=== PATIENT | male | born 1965 | race African-American/Black ===

== ENCOUNTER 2020-12-25 12:59 | Inpatient (IN) | payer BC, OTHER ==
[2020-12-25 14:30] LABS: BASO % 0.2 % (0-2.0); EOS % 0.2 % (0-4.5); HEMATOCRIT 35.5 % (35.4-49); HEMOGLOBIN 12.1 GM/dL (11.7-16.9); LYMPH % 22.2 % (8-40); MCH 31.9 pg (25.7-33.7); MCHC 34.1 g/dl (32.0-35.9); MEAN CELL VOLUME 93.4 fl (80-96); MONO % 5.2 % (3.8-10.2); NEUT % 72.2 % (42.8-82.8); PLATELET COUNT 317 K/MM3 (134-434); RDW 13.9 % (11.9-15.9); WHITE BLOOD COUNT 9.4 K/mm3 (4.0-10.0)
[2020-12-25 14:39] LABS: INR 1.02 (0.83-1.09); PROTHROMBIN TIME (PATIENT) 12.3 SEC (9.7-13.0)
[2020-12-25 15:08] LABS: POTASSIUM 5.1 mmol/L (3.5-5.1)
[2020-12-25 15:10] LABS: CALCIUM 8.9 mg/dL (8.5-10.1)
[2020-12-25 15:11] LABS: ALBUMIN 3.5 g/dl (3.4-5.0); BLOOD UREA NITROGEN 23.6 mg/dL (7-18)
[2020-12-25 15:14] LABS: CREATININE 1.5 mg/dL (0.55-1.3)
[2020-12-25 15:16] LABS: BILIRUBIN,TOTAL 0.3 mg/dL (0.2-1); TOT PROT 6.4 g/dl (6.4-8.2)
[2020-12-25 15:24] LABS: URINE APPEARANCE CLEAR; URINE BILIRUBIN NEGATIVE (NEGATIVE); URINE COLOR YELLOW; URINE GLUCOSE (UA) NEGATIVE (NEGATIVE); URINE KETONE TRACE (NEGATIVE); URINE LEUK ESTERASE NEGATIVE (NEGATIVE); URINE NITRITE NEGATIVE (NEGATIVE); URINE PROTEIN NEGATIVE (NEGATIVE); URINE UROBILINOGEN 0.2 mg/dL (0.2-1.0)
[2020-12-25] MEDS ORDERED: SODIUM CHLORIDE 1,000 ML IV STA ×2 (15:31→18:44)
[2020-12-25] MEDS ORDERED: PANTOPRAZOLE SODIUM 40 MG VIAL IVPB ONE (18:45)
[2020-12-25] MEDS ORDERED: PANTOPRAZOLE SODIUM 40 MG/100 ML BAG IVPB ONE (18:54)
[2020-12-25 19:04] LABS: BASO % 0.3 % (0-2.0); HEMATOCRIT 33.7 % (35.4-49); HEMOGLOBIN 11.2 GM/dL (11.7-16.9); LYMPH % 21.7 % (8-40); MCH 31.5 pg (25.7-33.7); MCHC 33.3 g/dl (32.0-35.9); MEAN CELL VOLUME 94.6 fl (80-96); MEAN PLT VOLUME 8.8 fl (7.5-11.1); MONO % 4.6 % (3.8-10.2); NEUT % 73.4 % (42.8-82.8); PLATELET COUNT 272 K/MM3 (134-434); RBC 3.57 M/mm3 (4.00-5.60); WHITE BLOOD COUNT 9.7 K/mm3 (4.0-10.0)
[2020-12-25] MEDS ORDERED: ACETAMINOPHEN 325 MG TABLET (FP) PO PRN (21:40)
[2020-12-25] MEDS ORDERED: PIPERACILLIN/TAZOB 3.375 GM 3.375 GM in DEXTROSE 5%-WATER - 50 ML IVPB SCH (22:00)
[2020-12-25] MEDS ORDERED: PIPERACILLIN/TAZOB 3.375 GM 3.375 GM/50 ML BAG IVPB ONE (22:13)
[2020-12-26] MEDS: SODIUM CHLORIDE 1,000 ML IV SCH (01:51)
[2020-12-26 02:01] LABS: BASO % 0.6 % (0-2.0); EOS % 0.3 % (0-4.5); HEMATOCRIT 28.3 % (35.4-49); HEMOGLOBIN 9.7 GM/dL (11.7-16.9); LYMPH % 33.7 % (8-40); MCHC 34.1 g/dl (32.0-35.9); MEAN CELL VOLUME 93.8 fl (80-96); MEAN PLT VOLUME 8.1 fl (7.5-11.1); MONO % 7.3 % (3.8-10.2); NEUT % 58.1 % (42.8-82.8); PLATELET COUNT 248 K/MM3 (134-434); RBC 3.02 M/mm3 (4.00-5.60); RDW 14.1 % (11.9-15.9); WHITE BLOOD COUNT 10.3 K/mm3 (4.0-10.0)
[2020-12-26 06:47] VITALS: BMI 36.9
[2020-12-26 06:57] LABS: POTASSIUM 4.3 mmol/L (3.5-5.1)
[2020-12-26 06:59] LABS: ALBUMIN 2.8 g/dl (3.4-5.0); BLOOD UREA NITROGEN 25.2 mg/dL (7-18); CALCIUM 8.1 mg/dL (8.5-10.1); MAGNESIUM 1.4 mg/dL (1.8-2.4)
[2020-12-26 07:02] LABS: CREATININE 1.4 mg/dL (0.55-1.3)
[2020-12-26 07:04] LABS: BILIRUBIN,TOTAL 0.3 mg/dL (0.2-1); TOT PROT 5.2 g/dl (6.4-8.2)
[2020-12-26] MEDS ORDERED: MAGNESIUM SULF 50% (8.12 MEQ/2 ML-1 GM VIAL) IVPB ONE (08:42)
[2020-12-26] MEDS ORDERED: ZINC SULFATE 220 MG CAPSULE (FP) PO SCH (10:00)
[2020-12-26] MEDS ORDERED: CHOLECALCIFEROL (VIT D3) 1,000 UNIT (25 MCG) TABLET PO SCH (10:00)
[2020-12-26] MEDS ORDERED: ENOXAPARIN NA (PORCINE) 40 MG/0.4 ML DISP.SYRIN SQ SCH (10:00)
[2020-12-26] MEDS ORDERED: PIPERACILLIN/TAZOB 3.375 GM 3.375 GM in DEXTROSE 5%-WATER - 50 ML IVPB SCH (10:00)
[2020-12-26] MEDS ORDERED: VANCOMYCIN 1 GM in D5W (PRE-DOCKED) 1,000 MG/250 ML IVPB SCH (10:00)
[2020-12-26] MEDS ORDERED: PANTOPRAZOLE SODIUM 40 MG VIAL IVPUSH SCH (10:00)
[2020-12-26] MEDS ORDERED: ASCORBIC ACID 500 MG TABLET (FP) PO SCH (10:00)
[2020-12-26] MEDS: INSULIN SLIDING SCALE (NOVOLOG) 1 VIAL SQ SCH ×4 (11:31→22:11)
[2020-12-26] MEDS ORDERED: PANTOPRAZOLE SODIUM 80 MG in SODIUM CHLORIDE 100 ML IVPB SCH (12:30)
[2020-12-26 22:01] LABS: HEMOGLOBIN 9.2 GM/dL (11.7-16.9); MCH 33.1 pg (25.7-33.7); MCHC 35.2 g/dl (32.0-35.9); MEAN PLT VOLUME 8.1 fl (7.5-11.1); PLATELET COUNT 215 K/MM3 (134-434); RBC 2.77 M/mm3 (4.00-5.60); RDW 13.9 % (11.9-15.9); WHITE BLOOD COUNT 6.4 K/mm3 (4.0-10.0)
[2020-12-27] MEDS: SODIUM CHLORIDE 1,000 ML IV SCH ×2 (00:42→16:11)
[2020-12-27] MEDS: INSULIN SLIDING SCALE (NOVOLOG) 1 VIAL SQ SCH ×3 (06:18→21:41)
[2020-12-27] MEDS ORDERED: SODIUM CHLORIDE 1,000 ML IV SCH (07:55)
[2020-12-27 07:59] LABS: BASO % 0.6 % (0-2.0); EOS % 1.6 % (0-4.5); HEMATOCRIT 22.7 % (35.4-49); HEMOGLOBIN 7.8 GM/dL (11.7-16.9); LYMPH % 37.5 % (8-40); MCH 32.4 pg (25.7-33.7); MCHC 34.3 g/dl (32.0-35.9); MEAN CELL VOLUME 94.3 fl (80-96); MEAN PLT VOLUME 7.9 fl (7.5-11.1); NEUT % 51.3 % (42.8-82.8); PLATELET COUNT 202 K/MM3 (134-434); RDW 14.1 % (11.9-15.9); WHITE BLOOD COUNT 6.4 K/mm3 (4.0-10.0)
[2020-12-27 08:42] LABS: CALCIUM 7.7 mg/dL (8.5-10.1)
[2020-12-27 08:43] LABS: ALBUMIN 2.5 g/dl (3.4-5.0)
[2020-12-27 08:46] LABS: CREATININE 1.1 mg/dL (0.55-1.3)
[2020-12-27 08:47] LABS: BILIRUBIN,TOTAL 0.4 mg/dL (0.2-1)
[2020-12-27 08:48] LABS: TOT PROT 4.5 g/dl (6.4-8.2)
[2020-12-27] MEDS ORDERED: FERROUS SO4 325 MG TABLET (FP) PO SCH (10:00)
[2020-12-27] MEDS ORDERED: PANTOPRAZOLE SODIUM 40 MG VIAL IVPUSH SCH (10:30)
[2020-12-27] MEDS ORDERED: INSULIN SLIDING SCALE (NOVOLOG) 1 VIAL SQ SCH (11:00)
[2020-12-27] MEDS: ACETAMINOPHEN 325 MG TABLET (FP) PO PRN (14:48)
[2020-12-27] MEDS: ATENOLOL 25 MG TABLET (FP) PO SCH (14:48)
[2020-12-27] MEDS: DULoxetine HCL 30 MG CAPSULE.DR PO SCH (14:48)
[2020-12-27] MEDS: ACETAMINOPHEN 1000 MG/100 ML VIAL (NON FORMULARY) IVPB PRN (16:09)
[2020-12-27] MEDS ORDERED: ACETAMINOPHEN/CAFFEINE/BUTALBITAL 1 TAB PO ONE (17:59)
[2020-12-27] MEDS: MUPIROCIN 2% TOPICAL OINTMENT FOR DECOLONIZATION NS SCH ×2 (18:09→21:35)
[2020-12-27] MEDS: PANTOPRAZOLE SODIUM 40 MG VIAL IVPUSH SCH (21:36)
[2020-12-27] MEDS: FERROUS SO4 325 MG TABLET (FP) PO SCH (21:41)
[2020-12-27] MEDS ORDERED: CHLORHEXIDINE GLUCONATE 4% CLEANSER FOR DECOLONIZATION TP SCH (22:00)
[2020-12-28 02:22] LABS: HEMOGLOBIN 8.4 GM/dL (11.7-16.9); MCH 32.4 pg (25.7-33.7); MCHC 35.1 g/dl (32.0-35.9); MEAN CELL VOLUME 92.1 fl (80-96); MEAN PLT VOLUME 8.1 fl (7.5-11.1); PLATELET COUNT 183 K/MM3 (134-434); RBC 2.61 M/mm3 (4.00-5.60); RDW 13.7 % (11.9-15.9); WHITE BLOOD COUNT 8.7 K/mm3 (4.0-10.0)
[2020-12-28] MEDS: ACETAMINOPHEN 1000 MG/100 ML VIAL (NON FORMULARY) IVPB PRN (05:16)
[2020-12-28] MEDS: SODIUM CHLORIDE 1,000 ML IV SCH ×2 (05:17→08:26)
[2020-12-28] MEDS: INSULIN SLIDING SCALE (NOVOLOG) 1 VIAL SQ SCH ×4 (06:17→22:12)
[2020-12-28 07:19] LABS: BASO % 0.4 % (0-2.0); EOS % 0.9 % (0-4.5); HEMATOCRIT 22.8 % (35.4-49); LYMPH % 24.4 % (8-40); MCH 32.1 pg (25.7-33.7); MEAN CELL VOLUME 91.7 fl (80-96); MEAN PLT VOLUME 8.2 fl (7.5-11.1); MONO % 10.7 % (3.8-10.2); NEUT % 63.6 % (42.8-82.8); PLATELET COUNT 178 K/MM3 (134-434); RBC 2.49 M/mm3 (4.00-5.60); RDW 14.1 % (11.9-15.9)
[2020-12-28 07:32] LABS: POTASSIUM 3.7 mmol/L (3.5-5.1)
[2020-12-28 07:35] LABS: CALCIUM 7.5 mg/dL (8.5-10.1)
[2020-12-28 07:36] LABS: ALBUMIN 2.6 g/dl (3.4-5.0); BLOOD UREA NITROGEN 11.7 mg/dL (7-18); MAGNESIUM 1.6 mg/dL (1.8-2.4)
[2020-12-28 07:39] LABS: CREATININE 1.2 mg/dL (0.55-1.3); PHOSPHOROUS 3.4 mg/dL (2.5-4.9)
[2020-12-28 07:41] LABS: BILIRUBIN,TOTAL 0.8 mg/dL (0.2-1); TOT PROT 4.6 g/dl (6.4-8.2)
[2020-12-28] MEDS: PANTOPRAZOLE SODIUM 40 MG VIAL IVPUSH SCH (10:54)
[2020-12-28] MEDS: MUPIROCIN 2% TOPICAL OINTMENT FOR DECOLONIZATION NS SCH (10:54)
[2020-12-28] MEDS: FERROUS SO4 325 MG TABLET (FP) PO SCH (10:54)
[2020-12-28] MEDS: DULoxetine HCL 30 MG CAPSULE.DR PO SCH (10:54)
[2020-12-28] MEDS: ATENOLOL 25 MG TABLET (FP) PO SCH (10:55)
[2020-12-28] MEDS ORDERED: SODIUM PHOSPHATE/NA BIPHOS 133 ML ENEMA PR ONE (17:15)
[2020-12-28] MEDS: ACETAMINOPHEN 325 MG TABLET (FP) PO PRN (17:24)
[2020-12-28] MEDS ORDERED: ALBUTEROL SO4 HFA INHALER IH PRN (17:52)
[2020-12-28] MEDS ORDERED: SODIUM CHLORIDE 1,000 ML IV SCH (17:52)
[2020-12-28 19:59] LABS: BASO % 0.3 % (0-2.0); EOS % 1.6 % (0-4.5); HEMATOCRIT 23.9 % (35.4-49); HEMOGLOBIN 8.4 GM/dL (11.7-16.9); LYMPH % 23.2 % (8-40); MCHC 35.1 g/dl (32.0-35.9); MEAN CELL VOLUME 91.2 fl (80-96); MEAN PLT VOLUME 7.7 fl (7.5-11.1); MONO % 10.3 % (3.8-10.2); NEUT % 64.6 % (42.8-82.8); PLATELET COUNT 197 K/MM3 (134-434); RBC 2.62 M/mm3 (4.00-5.60); RDW 14.1 % (11.9-15.9); WHITE BLOOD COUNT 9.9 K/mm3 (4.0-10.0)
[2020-12-28] MEDS ORDERED: PT OWN MED DRAWER 7, Y5N ONE ×2 (21:51→21:55)
[2020-12-28] MEDS ORDERED: FERROUS SO4 325 MG TABLET (FP) PO SCH (22:00)
[2020-12-28] MEDS ORDERED: PANTOPRAZOLE SODIUM 40 MG VIAL IVPUSH SCH (22:00)
[2020-12-28] MEDS ORDERED: MAGNESIUM CITRATE 300 ML BOTTLE PO ONE ×3 (22:00→23:00)
[2020-12-29] MEDS ORDERED: MAGNESIUM CITRATE 300 ML BOTTLE PO ONE ×2 (01:00→08:26)
[2020-12-29] MEDS ORDERED: SODIUM PHOSPHATE/NA BIPHOS 133 ML ENEMA PR ONE ×2 (05:00→05:15)
[2020-12-29] MEDS: INSULIN SLIDING SCALE (NOVOLOG) 1 VIAL SQ SCH (06:27)
[2020-12-29] MEDS ORDERED: SODIUM CHLORIDE 1,000 ML IV SCH (08:26)
[2020-12-29] MEDS ORDERED: ALBUTEROL SO4 HFA INHALER IH PRN ×2 (08:26→08:28)
[2020-12-29] MEDS ORDERED: DULoxetine HCL 30 MG CAPSULE.DR PO SCH ×2 (10:00)
[2020-12-29] MEDS ORDERED: FERROUS SO4 325 MG TABLET (FP) PO SCH (10:00)
[2020-12-29] MEDS ORDERED: ATENOLOL 25 MG TABLET (FP) PO SCH ×2 (10:00)
[2020-12-29] MEDS ORDERED: PT OWN MED DRAWER 7, Y5N ONE (10:00)
[2020-12-29] MEDS ORDERED: PANTOPRAZOLE SODIUM 40 MG VIAL IVPUSH SCH (10:00)
[2020-12-29 10:57] LABS: BASO % 0.3 % (0-2.0); EOS % 1.6 % (0-4.5); HEMATOCRIT 26.9 % (35.4-49); HEMOGLOBIN 9.4 GM/dL (11.7-16.9); LYMPH % 22.8 % (8-40); MCH 32.8 pg (25.7-33.7); MCHC 35.1 g/dl (32.0-35.9); MEAN CELL VOLUME 93.6 fl (80-96); MEAN PLT VOLUME 8.3 fl (7.5-11.1); NEUT % 71.3 % (42.8-82.8); PLATELET COUNT 217 K/MM3 (134-434); RBC 2.88 M/mm3 (4.00-5.60); RDW 14.2 % (11.9-15.9); WHITE BLOOD COUNT 10.1 K/mm3 (4.0-10.0)
[2020-12-29] MEDS ORDERED: INSULIN SLIDING SCALE (NOVOLOG) 1 VIAL SQ SCH (11:00)
[2020-12-29 11:29] LABS: POTASSIUM 3.7 mmol/L (3.5-5.1)
[2020-12-29 11:35] LABS: ALBUMIN 2.9 g/dl (3.4-5.0); BLOOD UREA NITROGEN 5.9 mg/dL (7-18)
[2020-12-29 11:38] LABS: CREATININE 1.3 mg/dL (0.55-1.3)
[2020-12-29 11:40] LABS: BILIRUBIN,TOTAL 0.4 mg/dL (0.2-1)
[2020-12-29 11:45] LABS: TOT PROT 5.2 g/dl (6.4-8.2)
[2020-12-29 14:44] VITALS: TEMP 98.1
[2020-12-29 15:12] VITALS: BP 136/62; PULSE 98
[2020-12-29] MEDS ORDERED: PANTOPRAZOLE 40 MG TABLET PO SCH (22:00)
[2020-12-29] MEDS ORDERED: PANTOPRAZOLE SODIUM 40 MG in SODIUM CHLORIDE 100 ML IVPB SCH (22:00)
== END 2020-12-29 15:58 | disposition home or self-care (01) | DRG 244 ==
LOC: JER 12:59 → JERBED 20:06 → J8W 12-26 05:58 → J4W 12-27 00:27 → JICU 12-27 15:53 → J8W 12-28 17:48
PROVIDERS: ADMIT Internal Medicine; ATTEND Internal Medicine
PROC: 30233N1 Transfusion of Nonautologous Red Blood Cells into Peripheral Vein, Percutaneous Approach (ICD-10-PCS; 2020-12-26)
PROC: 30233L1 Transfusion of Nonautologous Fresh Plasma into Peripheral Vein, Percutaneous Approach (ICD-10-PCS; 2020-12-27)
PROC: 30233K1 Transfusion of Nonautologous Frozen Plasma into Peripheral Vein, Percutaneous Approach (ICD-10-PCS; 2020-12-27)
PROC: 0DJD8ZZ Inspection of Lower Intestinal Tract, Via Natural or Artificial Opening Endoscopic (ICD-10-PCS; principal; 2020-12-29 07:30)
DX: K57.91 Diverticulosis of intestine, part unspecified, without perforation or abscess with bleeding (principal); N17.9 Acute kidney failure, unspecified; K56.1 Intussusception; D62 Acute posthemorrhagic anemia; E11.22 Type 2 diabetes mellitus with diabetic chronic kidney disease; I12.9 Hypertensive chronic kidney disease with stage 1 through stage 4 chronic kidney disease, or unspecified chronic kidney disease; N18.9 Chronic kidney disease, unspecified; J45.909 Unspecified asthma, uncomplicated; F31.9 Bipolar disorder, unspecified; E66.9 Obesity, unspecified; F17.210 Nicotine dependence, cigarettes, uncomplicated; Z79.84 Long term (current) use of oral hypoglycemic drugs; Z68.37 Body mass index [BMI] 37.0-37.9, adult; R19.7 Diarrhea, unspecified; D17.79 Benign lipomatous neoplasm of other sites; D35.01 Benign neoplasm of right adrenal gland
CPT/HCPCS: 36415; 36430; 74174-TC; 76775-TC; 76856-TC; 80053; 81003; 82272; 82607; 82728; 82747; 82962; 83540; 83550; 83605; 83735; 84100; 85014; 85025; 85027; 85610; 86850; 86900; 86901; 86922; 87086; 93005; 93010; 99285-25; C9803; J0131; P9017; P9058; U0003